=== PATIENT | female | born 1960 | race Caucasian/White ===

== ENCOUNTER 2019-01-23 11:13 | Day surgery (SDC) | payer BC ==
[~2019-01-23] VITALS: Ht 177.8 cm; Wt 127.0 kg
[~2019-01-23 11:13] MED LIST: ASPI81CH; ASPI81CH PO; Adipex-P37.5 MG; BISTOLIC PO; EPIPEN 2-P0.3 MG/0.3; ESCI10 PO; HYDACE10B PO; LISHYD2025 PO; META800 PO; METO50ER; Mobic15 MG PO; NEBI10 PO; PRED20 PO; TRIHYD253B PO; Tylenol325 MG
--- NOTE | 2019-01-23 11:38 | NUR ---
PT ADMITTED TO [facility]. AGREES WITH PLANNED SURGERY. MEDS, ALLERGIES AND HX REVIEWED. LUNG SOUNDS CLEAR.
--- NOTE | 2019-01-23 15:29 | NUR ---
1440 OBRIEN CATH CLAMPED, 400ML WARM STERILE WATER SLOWLY INFUSED TO BLADDER. PT VERBALIZES INCREASING URGE TO VOID. OBRIEN CATH REMOVED INTACT. PT TO BSC. 1520 PT UNABLE TO VOID, CONTINUES TO VERBALIZE URGE TO VOID. BACK TO [facility], DANGLING FEET AT EDGE OF [place], VSS, SMALL AMOUNT OF YE BLOOD NOTED ON HAT INSIDE OF BSC. 1530 S.O. TO BEDSIDE PT CONT TO VERBALIZE URGE TO VOID.
--- NOTE | 2019-01-23 18:00 | NUR ---
1740 PT RELEASED STABLE. INSTRUCTED ON HOME OBRIEN CARE INCLUDING LEG BAG AND DRAINAGE BAG. RINSE WITH [facility] SOLUTION. CALL DR PABLO'S OFFICE FOR APPOINTMENT TO BE SEEN THIS WednesdayJanuary. Patient up to Ambulate independently. Gait steady. Discharge instructions reviewed with patient. Patient verbalizes understanding. Copy given to patient to take home. Patient States Post-Procedure ride home has been arranged. Discharged via wheelchair to private car for ride home.
--- NOTE | 2019-01-24 08:55 | NUR ---
01/24/19 0855 Miriam Brady VERIFICATIONS: EDIT CHART.
== END 2019-01-23 23:00 | disposition home or self-care (01) ==
LOC: ORSCMMR 11:13 → ORD 12:30 → ORSCMMR 23:00 → ORD 02-06 12:30
PROVIDERS: Obstetrics & Gynecology
PROC: 0TSD0ZZ Reposition Urethra, Open Approach (ICD-10-PCS; principal; 2019-01-23 12:30)
DX: N39.3 Stress incontinence (female) (male) (principal); I10 Essential (primary) hypertension; G47.33 Obstructive sleep apnea (adult) (pediatric); E66.01 Morbid (severe) obesity due to excess calories; Z68.41 Body mass index [BMI] 40.0-44.9, adult; Z79.82 Long term (current) use of aspirin; Z79.899 Other long term (current) drug therapy
CPT/HCPCS: A9270-GY; C1771; J0330; J1100; J1885; J1956; J2250; J2370; J2405; J3010; J7120

== ENCOUNTER 2019-05-11 18:32 | Emergency (ER) | payer BC ==
[~2019-05-11] VITALS: Ht 172.7 cm; Wt 80.7 kg
[2019-05-11] MEDS ORDERED: CYCL10 PO (19:43)
[2019-05-11] MEDS ORDERED: IBUP800 PO (19:43)
== END 2019-05-11 19:48 | disposition home or self-care (01) ==
LOC: ER 18:32
DX: M25.511 Pain in right shoulder (principal); I10 Essential (primary) hypertension; Z79.899 Other long term (current) drug therapy; W18.30XA Fall on same level, unspecified, initial encounter
CPT/HCPCS: 73030; 99283-25

== ENCOUNTER → 2019-08-21 | Outpatient (CLI) | payer BC ==
[~2019-08-21] MED LIST changes: +CYCL10 PO; +IBUP800 PO
[2019-08-21 12:36] LABS: BASOPHILS ABSOLUTE AUTO 0.03 K/mm3 (0.00-0.23); BASOPHILS PERCENT AUTO 0 % (0-2); EOSINOPHILS ABSOLUTE AUTO 0.03 K/mm3 (0.00-0.68); EOSINOPHILS PERCENT AUTO 0 % (0-6); Hematocrit 39.6 % (33.0-51.0); Hemoglobin 12.7 g/dL (11.5-16.0); IMMATURE GRAN ABSOLUTE AUTO 0.05 K/mm3 (0.00-0.10); IMMATURE GRAN PERCENT AUTO 1 % (0-1); LYMPHOCYTES ABSOLUTE AUTO 0.45 K/mm3 (0.84-5.20); LYMPHOCYTES PERCENT AUTO 5 % (21-46); MONOCYTES ABSOLUTE AUTO 0.36 K/mm3 (0.16-1.47); MONOCYTES PERCENT AUTO 4 % (4-13); Mean Corpuscular HGB 27.9 pg (26.0-34.0); Mean Corpuscular HGB Conc 32.1 g/dL (31.5-36.5); Mean Corpuscular Volume 87 fL (80-100); Mean Platelet Volume 10.5 fL (9.1-12.4); NEUTROPHILS PERCENT AUTO 91 % (41-73); Platelet Count 189 K/mm3 (150-400); RDW Coefficient Variation 13.8 % (11.7-14.2); RDW Standard Deviation 44.1 fL (35.1-46.3); Red Blood Cell Count 4.56 M/mm3 (3.80-5.20); White Blood Cell Count 9.62 K/mm3 (4.00-11.30)
[2019-08-21 12:44] LABS: Albumin, Blood 3.5 g/dL (3.4-5.0); Albumin/Globulin Ratio 0.7 (0.8-1.8); Bilirubin, Total 0.9 mg/dL (0.1-1.0); Bun/Creatinine Ratio 12.7 (12.0-20.0); Calcium, Blood 8.9 mg/dL (8.5-10.1); Creatinine, Blood 1.34 mg/dL (0.40-1.00); Globulin, Blood 4.7 g/dL (2.2-4.0); Potassium, Blood 3.7 mmol/L (3.5-5.5); Total Protein, Blood 8.2 g/dL (6.4-8.2)
== END ==
LOC: LAB SHORT 12:29 → LAB EV 12:29
PROVIDERS: Emergency Medicine
DX: H60.12 Cellulitis of left external ear (principal)
CPT/HCPCS: 80053; 85025; 87040

== ENCOUNTER → 2019-08-23 | Outpatient (CLI) | payer BC | END | disposition home or self-care (01) | LOC: LAB SHORT 16:39 → LAB 16:39 | DX: L03.90 Cellulitis, unspecified (principal); R59.0 Localized enlarged lymph nodes | CPT/HCPCS: 87070 ==

== ENCOUNTER 2021-06-12 16:35 | Emergency (ER) | payer BC ==
[~2021-06-12] VITALS: Ht 172.7 cm; Wt 131.1 kg
[2021-06-12 17:16] LABS: BASOPHILS ABSOLUTE AUTO 0.02 K/mm3 (0.00-0.23); BASOPHILS PERCENT AUTO 0 % (0-2); EOSINOPHILS PERCENT AUTO 0 % (0-6); Hematocrit 36.9 % (33.0-51.0); Hemoglobin 12.1 g/dL (11.5-16.0); IMMATURE GRAN ABSOLUTE AUTO 0.06 K/mm3 (0.00-0.10); IMMATURE GRAN PERCENT AUTO 1 % (0-1); LYMPHOCYTES ABSOLUTE AUTO 0.43 K/mm3 (0.84-5.20); LYMPHOCYTES PERCENT AUTO 5 % (21-46); MONOCYTES ABSOLUTE AUTO 0.48 K/mm3 (0.16-1.47); MONOCYTES PERCENT AUTO 5 % (4-13); Mean Corpuscular HGB 28.4 pg (26.0-34.0); Mean Corpuscular HGB Conc 32.8 g/dL (31.5-36.5); Mean Corpuscular Volume 87 fL (80-100); Mean Platelet Volume 10.3 fL (9.1-12.4); NEUTROPHILS ABSOLUTE AUTO 8.47 K/mm3 (1.96-9.15); NEUTROPHILS PERCENT AUTO 90 % (41-73); Platelet Count 152 K/mm3 (150-400); RDW Coefficient Variation 14.6 % (11.7-14.2); RDW Standard Deviation 45.9 fL (35.1-46.3); Red Blood Cell Count 4.26 M/mm3 (3.80-5.20); White Blood Cell Count 9.46 K/mm3 (4.00-11.30)
[2021-06-12 17:40] LABS: Alanine Aminotransfer (ALT/SGP 41 U/L (12-78); Albumin, Blood 3.6 g/dL (3.4-5.0); Albumin/Globulin Ratio 0.8 (0.8-1.8); Alk Phos 61 U/L (50-136); Anion Gap 8 mmol/L (6-16); Aspartate Aminotrans (AST/SGOT 25 U/L (12-37); Bilirubin, Total 0.7 mg/dL (0.1-1.0); Blood Urea Nitrogen 13 mg/dL (8-24); Bun/Creatinine Ratio 16.5 (12.0-20.0); CO2, Blood 27 mmol/L (21-32); Chloride, Blood 100 mmol/L (98-108); Creatinine, Blood 0.79 mg/dL (0.40-1.00); Globulin, Blood 4.4 g/dL (2.2-4.0); Glomerular Filtration Rate >60 (60-); Glucose, Blood 183 mg/dL (70-99); Potassium, Blood 3.5 mmol/L (3.5-5.5); Sodium, Blood 135 mmol/L (136-145); Troponin I <0.015 ng/mL (0.000-0.040)
[2021-06-12] MEDS ORDERED: Zithromax250 MG PO (18:52)
== END 2021-06-12 19:05 | disposition home or self-care (01) ==
LOC: ER 16:35
PROVIDERS: Physician Assistant
DX: J18.9 Pneumonia, unspecified organism (principal); I10 Essential (primary) hypertension; Z86.16 Personal history of COVID-19; Z88.8 Allergy status to other drugs, medicaments and biological substances; Z79.82 Long term (current) use of aspirin; Z79.899 Other long term (current) drug therapy
CPT/HCPCS: 36415; 71045; 80053; 83880; 84484; 85025; 93005; 93010; 96374; 99285-25; A9270; J1885; J7030

== ENCOUNTER → 2021-11-18 | Outpatient (CLI) | payer BC ==
[~2021-11-18] MED LIST changes: +Zithromax250 MG PO
[2021-11-19 15:11] LABS: HPV 16 Negative (Negative); HPV 18 Negative (Negative); HPV OTHER HR TYPES Negative (Negative)
== END | disposition home or self-care (01) ==
LOC: LAB SHORT 18:31
PROVIDERS: Obstetrics & Gynecology
DX: Z01.419 Encounter for gynecological examination (general) (routine) without abnormal findings (principal)
CPT/HCPCS: 87624; G0123

== ENCOUNTER → 2021-12-31 | Outpatient (CLI) | payer BC | END | disposition home or self-care (01) | LOC: LAB 14:20 → LAB SHORT 14:20 | DX: Z08 Encounter for follow-up examination after completed treatment for malignant neoplasm (principal); D22.5 Melanocytic nevi of trunk; L40.0 Psoriasis vulgaris; L81.4 Other melanin hyperpigmentation; L82.1 Other seborrheic keratosis; B37.2 Candidiasis of skin and nail; A49.9 Bacterial infection, unspecified; Z85.820 Personal history of malignant melanoma of skin | CPT/HCPCS: 87070; 87077; 87147; 87186; 87205 ==

== ENCOUNTER 2022-06-02 08:59 | Inpatient (IN) | payer BC ==
[~2022-06-02] VITALS: Ht 172.7 cm; Wt 132.9 kg
[2022-06-02 09:55] LABS: BASOPHILS ABSOLUTE AUTO 0.03 K/mm3 (0.00-0.23); BASOPHILS PERCENT AUTO 1 % (0-2); EOSINOPHILS ABSOLUTE AUTO 0.16 K/mm3 (0.00-0.68); EOSINOPHILS PERCENT AUTO 3 % (0-6); Hematocrit 37.4 % (33.0-51.0); Hemoglobin 12.1 g/dL (11.5-16.0); IMMATURE GRAN ABSOLUTE AUTO 0.01 K/mm3 (0.00-0.10); IMMATURE GRAN PERCENT AUTO 0 % (0-1); LYMPHOCYTES ABSOLUTE AUTO 0.91 K/mm3 (0.84-5.20); LYMPHOCYTES PERCENT AUTO 17 % (21-46); MONOCYTES ABSOLUTE AUTO 0.34 K/mm3 (0.16-1.47); MONOCYTES PERCENT AUTO 6 % (4-13); Mean Corpuscular HGB 28.4 pg (26.0-34.0); Mean Corpuscular HGB Conc 32.4 g/dL (31.5-36.5); Mean Corpuscular Volume 88 fL (80-100); Mean Platelet Volume 9.8 fL (9.1-12.4); NEUTROPHILS ABSOLUTE AUTO 3.86 K/mm3 (1.96-9.15); NEUTROPHILS PERCENT AUTO 73 % (41-73); Platelet Count 198 K/mm3 (150-400); RDW Coefficient Variation 14.5 % (11.7-14.2); RDW Standard Deviation 46.2 fL (35.1-46.3); Red Blood Cell Count 4.26 M/mm3 (3.80-5.20); White Blood Cell Count 5.31 K/mm3 (4.00-11.30)
[2022-06-02 10:20] LABS: Albumin, Blood 3.5 g/dL (3.4-5.0); Albumin/Globulin Ratio 0.8 (0.8-1.8); Bilirubin, Total 0.4 mg/dL (0.1-1.0); Bun/Creatinine Ratio 16.6 (12.0-20.0); Calcium, Blood 8.8 mg/dL (8.5-10.1); Creatinine, Blood 0.6 mg/dL (0.40-1.00); Globulin, Blood 4.2 g/dL (2.2-4.0); Potassium, Blood 3.9 mmol/L (3.5-5.5); Total Protein, Blood 7.7 g/dL (6.4-8.2)
--- NOTE | 2022-06-02 12:33 | NUR ---
PT HAS ONE 20G IV IN L BACK OF FOREARM THAT RUNS WELL TO GRAVITY
--- NOTE | 2022-06-02 17:03 | NUR ---
PATIENT ARRIVED TO ROOM FROM PACU. VSS, ON 4L O2 VIA NC. LUNGS CLEAR. FUENTES TO MIDLINE INCISION ON ABDOMEN, SCANT AMOUNT OF DRAINAGE. ABDOMINAL BINDER IN PLACE. PATIENT REPORTS 6/10 PAIN TO ABDOMEN. ORIENTED TO ROOM & CALL LIGHT. DEMONSTRATED IS TO PATIENT AND PATIENT DEMONSTARTED VERY WELL. CALL LIGHT IN REACH.
--- NOTE | 2022-06-02 18:47 | NUR ---
NO ACUTE CHANGES SINCE ARRIVAL TO UNIT. VSS, ON 4L O2, SATS >92%. FAMILY TO BRING CPAP IN FROM HOME. REPORTS ABDOMINAL PAIN TO BE BETTER, AT 4/10 CURRENTLY. TOLERATING JELLO, CRACKERS, AND WATER AT THIS TIME. CALL LIGHT IN REACH, WILL REPORT TO ONCOMING RN.
--- NOTE | 2022-06-02 21:48 | NUR ---
BILATERAL COMPRESSION DEVICES PLACED ON PATIENT AND CONNECTED.
--- NOTE | 2022-06-03 00:52 | NUR ---
PT CHECK: PT IS SLEEPING WITH CPAP IN PLACE. BILATERAL CALF COMPRESSION DEVICES ARE INTACT AND WORKING. PT IS SLEEPING SOUNDLY. CALL LIGHT IS WITHIN REACH.
--- NOTE | 2022-06-03 04:09 | NUR ---
SHIFT SUMMARY: PT IS PODx0 FROM A HERNIA REPAIR WITH MESH. PT HAS A ASHLI DRAIN, A FUENTES, AND AN ABDOMINAL BINDER IN PLACE. SCANT SEROSANGENOUS DRAINAGE NOTED ON THE FUENTES. SANGENOUS DRAINAGE FROM THE ASHLI DRAIN. PT IS VERY PLEASANT AND IS ORIENTATED TO HER OWN ABILITES. PT WAS ABLE TO AMBULATE TO THE BATHROOM AND HAD A POST OP VOID. SHE REQUIRED MINIMAL ASSISTANCE WITH AMBULATION AND REPORTED SLIGHT TENDERNESS TO HER ABD. HER PAIN WAS WELL MANGED T/O THE SHIFT WITH UNINTERUPPTED SLEEP AND ORDERS PER EMAR. SHE IS DRINKING WELL AND HAS HAD CRACKERS TO SNACK ON. SHE WAS ON 4L OF OXYGEN VIA NC AND THEN USED HER CPAP DURING THE NIGHT. PT IS STILL SLEEPING WITH CPAP IN PLACE. PT CALLS ACCORDINGLY AND HAS HER CALL LIGHT WITHIN REACH.
[2022-06-03 05:06] LABS: BASOPHILS ABSOLUTE AUTO 0.01 K/mm3 (0.00-0.23); BASOPHILS PERCENT AUTO 0 % (0-2); EOSINOPHILS ABSOLUTE AUTO 0.01 K/mm3 (0.00-0.68); EOSINOPHILS PERCENT AUTO 0 % (0-6); Hematocrit 35.5 % (33.0-51.0); IMMATURE GRAN ABSOLUTE AUTO 0.03 K/mm3 (0.00-0.10); IMMATURE GRAN PERCENT AUTO 0 % (0-1); LYMPHOCYTES PERCENT AUTO 8 % (21-46); MONOCYTES ABSOLUTE AUTO 0.43 K/mm3 (0.16-1.47); MONOCYTES PERCENT AUTO 5 % (4-13); Mean Corpuscular HGB 28.3 pg (26.0-34.0); Mean Corpuscular Volume 91 fL (80-100); Mean Platelet Volume 10.4 fL (9.1-12.4); NEUTROPHILS ABSOLUTE AUTO 7.98 K/mm3 (1.96-9.15); NEUTROPHILS PERCENT AUTO 87 % (41-73); Platelet Count 241 K/mm3 (150-400); Red Blood Cell Count 3.89 M/mm3 (3.80-5.20); White Blood Cell Count 9.16 K/mm3 (4.00-11.30)
[2022-06-03 05:33] LABS: Bun/Creatinine Ratio 17.5 (12.0-20.0); Calcium, Blood 8.4 mg/dL (8.5-10.1); Creatinine, Blood 0.8 mg/dL (0.40-1.00); Potassium, Blood 4.5 mmol/L (3.5-5.5)
--- NOTE | 2022-06-03 10:59 | NUR ---
Pt. is awake in bed and welcomes my visit. Pt. is unsettled by needs of family at home. Listen empathetically with a calming presence. Pt. displays evidence of engagement and trust. 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 Facilitated a family life review. Prayed with Pt. Pt. verbalized gratitude for the spiritual care visit.
--- NOTE | 2022-06-03 16:09 | NUR ---
SHIFT SUMMARY POD 1 HERNIA REPAIR WITH MESH. MIDLINE ABDOMINAL INCISION WITH FUENTES DRESSING IN PLACE, LIGHT DRAINANGE PRESENT T/O SHIFT, GOOD SUCTION REMAINS. ESCOBAR PLACE TO RLQ, MINIMAL DRAINAGE. ABDOMINAL BINDER IN PLACE. ABDOMINAL PAIN MANAGED PER EMAR WITH 2 PERCOCET. PATIENT UP IN ROOM, AMBULATING HALLWAYS TODAY, UP TO CHAIR & BATHROOM, DOING VERY WELL WITH MOVEMENT. TOLERATING REGULAR PO DIET WELL, DENIES ANY N/V. CALLS APPROPRIATELY, WILL REPORT TO ONCOMING RN.
--- NOTE | 2022-06-04 07:39 | NUR ---
summary pt requiring iv pain meds for adequate control.c/o nausea this am when eating bites of kristin crakers for possible po pain meds. med with zofran and dilaudid.
--- NOTE | 2022-06-04 13:24 | NUR ---
Pt. is sitting up in a chair and welcomes my visit. Many family members are present. Pt. is experiencing some discomfort and verbalizes that she will need to stay an extra night. With therputic listening and a calming presence pt. displays evidence of confidence, maikol and hope. Establish rapport with other family members. Pt. is being cared for well, so this chaplian excused himself until later in the day or in the morning.
[2022-06-04] MEDS ORDERED: Percocet 5-3251 EACH PO (14:45)
--- NOTE | 2022-06-04 15:47 | NUR ---
DISCHARGE SUMMARY PATIENT ALERT AND ORIENTED THROUGHOUT SHIFT. TOLERATING REGULAR DIET AND LIQUIDS. DENIES NAUSEA. ABD PAIN CONTROLLED WITH PO PAIN MEDS AND TORADOL. FUENTES DRESSING TO MIDLINE INCISION C/D/I. ESCOBAR WITH MODERATE SS OUTPUT. PATIENT AMBULATING IN HALLS. ABD BINDER IN PLACE. DISCHARGE ORDERS OBTAINED. DISCHARGE EDUCATION GIVEN ON NEW MEDS, WOUND CARE, ACTIVITY, AND FOLLOW UP APPTS. PATIENT LEFT UNIT AT 1530 VIA WHEELCHAIR FOR HOME WITH FAMILY.
== END 2022-06-04 15:38 | disposition home or self-care (01) | DRG 354 ==
LOC: ER 08:59 → SURS 09:00
PROVIDERS: Emergency Medicine; ADMIT Surgery
PROC: 0WUF0JZ Supplement Abdominal Wall with Synthetic Substitute, Open Approach (ICD-10-PCS; principal; 2022-06-02 12:30)
DX: K43.0 Incisional hernia with obstruction, without gangrene (principal); Z68.41 Body mass index [BMI] 40.0-44.9, adult; K42.9 Umbilical hernia without obstruction or gangrene; E66.01 Morbid (severe) obesity due to excess calories; I10 Essential (primary) hypertension; G47.33 Obstructive sleep apnea (adult) (pediatric); Z88.8 Allergy status to other drugs, medicaments and biological substances; Z79.899 Other long term (current) drug therapy; Z79.2 Long term (current) use of antibiotics; Z98.890 Other specified postprocedural states; Z98.51 Tubal ligation status; Z99.81 Dependence on supplemental oxygen
CPT/HCPCS: 36415; 74177; 80048; 80053; 83690; 85025; 94660; 94762; 96374-59; 99285-25; A9270; C1781; J0330; J0360; J0690; J1100; J1170; J1650; J1885; J2270; J2370; J2405; J2704; J2795; J3010; J7120; Q9967

== ENCOUNTER 2022-06-10 17:57 | Observation (INO) | payer BC ==
[~2022-06-10] VITALS: Ht 172.7 cm; Wt 135.1 kg
[~2022-06-10 17:57] MED LIST changes: +Percocet 5-3251 EACH PO
[2022-06-10 19:08] LABS: Albumin, Blood 3.3 g/dL (3.4-5.0); Albumin/Globulin Ratio 0.8 (0.8-1.8); Bilirubin, Total 0.4 mg/dL (0.1-1.0); Bun/Creatinine Ratio 16.6 (12.0-20.0); Calcium, Blood 9.1 mg/dL (8.5-10.1); Creatinine, Blood 0.78 mg/dL (0.40-1.00); Globulin, Blood 4.3 g/dL (2.2-4.0); Potassium, Blood 4.7 mmol/L (3.5-5.5); Total Protein, Blood 7.6 g/dL (6.4-8.2)
[2022-06-10 19:45] LABS: BASOPHILS ABSOLUTE AUTO 0.02 K/mm3 (0.00-0.23); BASOPHILS PERCENT AUTO 0 % (0-2); EOSINOPHILS ABSOLUTE AUTO 0.27 K/mm3 (0.00-0.68); EOSINOPHILS PERCENT AUTO 3 % (0-6); Hematocrit 34.6 % (33.0-51.0); Hemoglobin 11.2 g/dL (11.5-16.0); IMMATURE GRAN ABSOLUTE AUTO 0.04 K/mm3 (0.00-0.10); IMMATURE GRAN PERCENT AUTO 0 % (0-1); LYMPHOCYTES ABSOLUTE AUTO 0.43 K/mm3 (0.84-5.20); LYMPHOCYTES PERCENT AUTO 5 % (21-46); MONOCYTES ABSOLUTE AUTO 0.63 K/mm3 (0.16-1.47); MONOCYTES PERCENT AUTO 7 % (4-13); Mean Corpuscular HGB 28.4 pg (26.0-34.0); Mean Corpuscular HGB Conc 32.4 g/dL (31.5-36.5); Mean Corpuscular Volume 88 fL (80-100); Mean Platelet Volume 9.9 fL (9.1-12.4); NEUTROPHILS ABSOLUTE AUTO 7.55 K/mm3 (1.96-9.15); NEUTROPHILS PERCENT AUTO 85 % (41-73); Platelet Count 279 K/mm3 (150-400); RDW Coefficient Variation 14.4 % (11.7-14.2); RDW Standard Deviation 45.9 fL (35.1-46.3); Red Blood Cell Count 3.95 M/mm3 (3.80-5.20); White Blood Cell Count 8.94 K/mm3 (4.00-11.30)
[2022-06-10 23:07] LABS: Source, Urine Clean Catch
[2022-06-10 23:17] LABS: Bilirubin, Urine Neg (Neg); Blood, Urine Neg (Neg); Glucose Qualitative, Urine Neg (Neg); Ketones, Urine Neg (Neg); Leukocyte Esterase, Urine 1+ (Neg); Nitrite, Urine Neg (Neg); Protein, Urine Neg (Neg); Urobilinogen, Urine NORM (Normal)
[2022-06-10 23:18] LABS: Appearance, Urine Clear (Clear); Bacteria Rare /hpf; Color, Urine Yellow (P-Yellow); Red Blood Cells, Urine Not Seen /hpf (0-2); Squamous Epithelial Cells Few /hpf (Few); White Blood Cells, Urine 0-2 /hpf (0-5)
[2022-06-11 01:41] LABS: Influenza A, PCR NEGATIVE (NEGATIVE); Influenza B, PCR NEGATIVE (NEGATIVE); Resp Syncytial Virus, PCR NEGATIVE (NEGATIVE); SARS-Cov-2 (COVID-19) PCR, MMC NEGATIVE (NEGATIVE)
[2022-06-11 05:12] LABS: BASOPHILS ABSOLUTE AUTO 0.04 K/mm3 (0.00-0.23); BASOPHILS PERCENT AUTO 0 % (0-2); EOSINOPHILS ABSOLUTE AUTO 0.24 K/mm3 (0.00-0.68); EOSINOPHILS PERCENT AUTO 2 % (0-6); Hematocrit 37.1 % (33.0-51.0); Hemoglobin 11.7 g/dL (11.5-16.0); IMMATURE GRAN ABSOLUTE AUTO 0.06 K/mm3 (0.00-0.10); IMMATURE GRAN PERCENT AUTO 0 % (0-1); LYMPHOCYTES ABSOLUTE AUTO 0.65 K/mm3 (0.84-5.20); LYMPHOCYTES PERCENT AUTO 5 % (21-46); MONOCYTES ABSOLUTE AUTO 0.88 K/mm3 (0.16-1.47); MONOCYTES PERCENT AUTO 7 % (4-13); Mean Corpuscular HGB 27.7 pg (26.0-34.0); Mean Corpuscular HGB Conc 31.5 g/dL (31.5-36.5); Mean Corpuscular Volume 88 fL (80-100); Mean Platelet Volume 10.2 fL (9.1-12.4); NEUTROPHILS ABSOLUTE AUTO 11.75 K/mm3 (1.96-9.15); NEUTROPHILS PERCENT AUTO 86 % (41-73); Platelet Count 289 K/mm3 (150-400); RDW Coefficient Variation 14.6 % (11.7-14.2); RDW Standard Deviation 47.1 fL (35.1-46.3); Red Blood Cell Count 4.23 M/mm3 (3.80-5.20); White Blood Cell Count 13.62 K/mm3 (4.00-11.30)
[2022-06-11 05:38] LABS: Albumin, Blood 3.2 g/dL (3.4-5.0); Albumin/Globulin Ratio 0.7 (0.8-1.8); Bilirubin, Total 0.6 mg/dL (0.1-1.0); Bun/Creatinine Ratio 11.5 (12.0-20.0); Calcium, Blood 9.4 mg/dL (8.5-10.1); Creatinine, Blood 0.87 mg/dL (0.40-1.00); Globulin, Blood 4.6 g/dL (2.2-4.0); Potassium, Blood 3.6 mmol/L (3.5-5.5); Total Protein, Blood 7.8 g/dL (6.4-8.2)
--- NOTE | 2022-06-11 06:10 | NUR ---
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 SHE IS FULL CODE. PT HAD A HERNIA REPAIR ON 06/02/2022 AND HAS MIDLINE ABDOMINAL INCISION HELD SHUT BY DASHAWN - SLIGHTLY RED BUT NO DRAINAGE. ESCOBAR DRAIN TO THE RIGHT LOWER QUADRANT - SEROSANGUINOUS DRAINAGE. PT DENIES PAIN. FEVER HAS BEEN DOWN AROUND 99.1 ORAL. SHE DID HAVE ONE EPISODE OF VOMITING RESOLVED WITH ZOFRAN. PT WEARING CPAP AT NIGHT REQUIRING 5L OXYGEN BLEED IN TO MAINTAIN SATS OVER 88%. PT IS ALERT AND ORIENTED X4. SBA TO BSC DUE TO PT COMPLAINTS OF DIZZINESS - SLIGHT DIZZINESS RESOLVED WITH REST. PT GIVEN IV LASIX AND HAS HAD LARGE OUTPUT.
--- NOTE | 2022-06-11 10:09 | NUR ---
AM NOTE ORIENTATED X4, C/O ABDOMINAL PAIN AND FEVER EARLY IN THE SHIFT, FEVER RESOLVED AND PAIN MUCH REDUCED AFTER PERCOCET. IV ABX GIVEN. NO NAUSEA, ATE BREAKFAST. ESCOBAR DRAIN EMPTIED, DARK RED/BROWN COLORED DRAINAGE. SOME REDNESS AT DRAIN SITE AND SLIGHT REDNESS AT DASHAWN. EXCORIATION UNDER BREASTS AND ABDOMINAL FOLD THAT PT SAID IS NOT TENDER AND IS NORMAL FOR HER. BED LOW, CALL LIGHT IN REACH.
--- NOTE | 2022-06-11 17:46 | NUR ---
SHIFT SUMMARY MS RAMON HAS BEEN TIRED AND SLEEPY FOR MUCH OF THE DAY. TELE SR. TOOK 2 PERCOCET FOR PAIN/FEVER THIS AM, NO FURTHER C/O PAIN. IV ABX GIVEN. ON CONTINUOUS VIOXX, 89-90S ON ROOMN AIR. EXCORIATION UNDER BREASTS AND ABDOMINAL FOLD, NOT TENDER PER PT, POWDER APPLIED. SL REDNESS AT DRAIN SITE AND DASHAWN. ESCOBAR DRAIN EMPTIED THIS AM WITH DARK RED/BROWN OUTPUT BUT MINIMAL DRAINAGE TO BULB SXN SINCE THEN. NO C/O NAUSEA. BED LOW, CALL LIGHT IN REACH.
--- NOTE | 2022-06-12 04:42 | NUR ---
SHIFT SUMMARY; PATIENT IS AO X 4 THIS EVENING. SHE IS PLEASANT AND COOPERATIVE WITH CARE. SHE HAS AN ABDOMINAL BINDER OVER HER SURGICAL SITE. DASHAWN INTACT AND SLIGHT REDNESS TO SITE NO DRAINAGE NOTED. HER JPEG HAS SCANT DRAINAGE NOTED AND IS STILL COMPRESSED. SHE COMPLAINS OF PAIN TO ABDOMEN TONIGHT AND WAS MEDICATED X 1 WITH OXYCODONE. SHE ALSO COMPLAINED OF A HEADACHE EARLY THIS AM AND WAS PROVIDED WITH TYLENOL BOTH WITH MUCH SUCCESS. WILL CONTINUE TO MONITOR THIS PAITENT CLOSELY FOR ANY WANTS OR NEEDS THAT MAY COME UP UNTIL HAND OFF AT SHIFT CHANGE TO DAY SHIFT RN.
[2022-06-12 04:44] LABS: BASOPHILS ABSOLUTE AUTO 0.04 K/mm3 (0.00-0.23); BASOPHILS PERCENT AUTO 0 % (0-2); EOSINOPHILS ABSOLUTE AUTO 0.53 K/mm3 (0.00-0.68); EOSINOPHILS PERCENT AUTO 4 % (0-6); Hematocrit 32.4 % (33.0-51.0); Hemoglobin 10.1 g/dL (11.5-16.0); IMMATURE GRAN ABSOLUTE AUTO 0.07 K/mm3 (0.00-0.10); IMMATURE GRAN PERCENT AUTO 1 % (0-1); LYMPHOCYTES ABSOLUTE AUTO 1.13 K/mm3 (0.84-5.20); LYMPHOCYTES PERCENT AUTO 9 % (21-46); MONOCYTES ABSOLUTE AUTO 1.09 K/mm3 (0.16-1.47); MONOCYTES PERCENT AUTO 9 % (4-13); Mean Corpuscular HGB 27.7 pg (26.0-34.0); Mean Corpuscular HGB Conc 31.2 g/dL (31.5-36.5); Mean Corpuscular Volume 89 fL (80-100); Mean Platelet Volume 9.8 fL (9.1-12.4); NEUTROPHILS ABSOLUTE AUTO 9.29 K/mm3 (1.96-9.15); NEUTROPHILS PERCENT AUTO 76 % (41-73); Platelet Count 239 K/mm3 (150-400); RDW Coefficient Variation 14.9 % (11.7-14.2); RDW Standard Deviation 49.3 fL (35.1-46.3); Red Blood Cell Count 3.64 M/mm3 (3.80-5.20); White Blood Cell Count 12.15 K/mm3 (4.00-11.30)
[2022-06-12 05:18] LABS: Magnesium, Blood 2.1 mg/dL (1.6-2.4)
[2022-06-12 05:24] LABS: Alanine Aminotransfer (ALT/SGP 22 U/L (12-78); Albumin, Blood 2.7 g/dL (3.4-5.0); Albumin/Globulin Ratio 0.6 (0.8-1.8); Alk Phos 64 U/L (50-136); Anion Gap 4 mmol/L (6-16); Aspartate Aminotrans (AST/SGOT 11 U/L (12-37); Bilirubin, Total 0.5 mg/dL (0.1-1.0); Blood Urea Nitrogen 16 mg/dL (8-24); Bun/Creatinine Ratio 17.5 (12.0-20.0); C-REACTIVE PROTEIN, EXT RANGE >19.000 mg/dL (0.000-0.300); CO2, Blood 33 mmol/L (21-32); Calcium, Blood 8.4 mg/dL (8.5-10.1); Chloride, Blood 100 mmol/L (98-108); Creatinine, Blood 0.92 mg/dL (0.40-1.00); Globulin, Blood 4.3 g/dL (2.2-4.0); Glomerular Filtration Rate 70 (60-); Glucose, Blood 129 mg/dL (70-99); Phosphorus, Blood 3.1 mg/dL (2.5-4.9); Potassium, Blood 3.6 mmol/L (3.5-5.5); Sodium, Blood 137 mmol/L (136-145)
--- NOTE | 2022-06-12 08:52 | NUR ---
REPORT FROM PM RN, PATIENT IN NO DISTRESS, ALERT AND ORIENTED X4, SURGERY CONSULT CALLED INTO ANSWERING SERVICE FOR DR LEANN PAN, PATIENT NOTIFIED, CALL LIGHT WITH IN REACH, EATING BREAKFAST, ESCOBAR DRAINED
[2022-06-12] MEDS ORDERED: ACET325 PO (13:45)
[2022-06-12] MEDS ORDERED: MICO100S TOP (13:46)
[2022-06-12] MEDS ORDERED: ONDA4ODT MM (13:47)
[2022-06-12] MEDS ORDERED: CEPH500 PO (13:49)
[2022-06-12] MEDS ORDERED: VISBIOME 112.51 EACH PO (13:49)
== END 2022-06-12 14:39 | disposition home or self-care (01) ==
LOC: ER 17:57 → MEDS 17:58
PROVIDERS: Emergency Medicine; Family Medicine; ADMIT Internal Medicine
DX: R50.82 Postprocedural fever (principal); I10 Essential (primary) hypertension; I87.8 Other specified disorders of veins; E66.9 Obesity, unspecified; Z20.822 Contact with and (suspected) exposure to COVID-19; Z98.890 Other specified postprocedural states; Z88.8 Allergy status to other drugs, medicaments and biological substances; Z79.899 Other long term (current) drug therapy
CPT/HCPCS: 0241U; 36415; 71046; 74177; 80053; 81001; 83605; 83735; 83880; 84100; 84484; 85025; 86140; 93005; 93010; 94660; 94762; 96365; 99285-25; A9270; J0360; J0690; J1650; J1940; J2405; J2543; J3370; J7050; J7120; Q9967

== ENCOUNTER 2022-07-06 09:16 | Day surgery (SDC) | payer BC ==
[~2022-07-06] VITALS: Ht 172.7 cm; Wt 126.6 kg
[~2022-07-06 09:16] MED LIST changes: +ACET325 PO; +CEPH500 PO; +MICO100S TOP; +ONDA4ODT MM; +VISBIOME 112.51 EACH PO
[2022-07-06] MEDS ORDERED: FLUC150A PO (10:23)
[2022-07-06] MEDS ORDERED: SULFAMETHOXAZO1 EAC1 UD (10:23)
--- NOTE | 2022-07-06 10:49 | NUR ---
Ambulatory in Day Surgery. Patient confirms NPO status and agrees with scheduled surgery. Patient States Post-Procedure ride home has been arranged. Pre-Op teaching done. Pt verbalizes understanding. Lungs clear T/O to Auscultation.
--- NOTE | 2022-07-06 11:24 | NUR ---
07/06/22 1124 Thien Arriaza NO SPECIMENS OR CULTURES PER MD. WOUND VAC PLACED WITH ONE PIECE BLACK FOAM INSIDE ABDOMEN SET TO CONTINEOUS 120MMHG.
--- NOTE | 2022-07-06 12:58 | NUR ---
Discharge instructions reviewed with patient. Patient verbalizes understanding. Copy given to patient to take home. WOUND VAC C/D/I WITH SUCTION WORKING.
--- NOTE | 2022-07-06 13:03 | NUR ---
PT DRESSED, Discharged via wheelchair to private car for ride home.
--- NOTE | 2022-07-06 13:17 | NUR ---
PER WOUND CLINIC, NO PROVIDERS IN THIS WEEK FOR WOUND VAC CHANGED AND WAS TOLD TO CONTACT DR HAWTHORNE OFFICE. CALLED THE OFFICE AFTER DISCHARGING AR[facility] THE OFFICE WAS CLOSED FOR LUNCH. SPOKE WITH BRANDON KENNEY FOR DR ANDERSON AND SHE TOLD ME SHE WILL CALL [facility] REGARDING WOUND VAC CHANGE. THIS RN CALLED [facility] TO EXPLAIN. PT UNDERSTANDING.
== END 2022-07-06 13:00 | disposition home or self-care (01) ==
LOC: ORSCMMR 09:16 → ORD 10:30 → ORSCMMR 13:00
PROVIDERS: Surgery
PROC: 3E10X8Z Irrigation of Skin and Mucous Membranes using Irrigating Substance (ICD-10-PCS; principal; 2022-07-06 10:30)
DX: L02.211 Cutaneous abscess of abdominal wall (principal); I10 Essential (primary) hypertension; G47.33 Obstructive sleep apnea (adult) (pediatric); Z79.899 Other long term (current) drug therapy; E66.01 Morbid (severe) obesity due to excess calories; Z68.41 Body mass index [BMI] 40.0-44.9, adult
CPT/HCPCS: A9270; J0690; J1100; J1885; J2405; J2704; J2795; J3010; J7120

== ENCOUNTER 2022-07-20 04:20 | Day surgery (SDC) | payer BC ==
[~2022-07-20 04:20] MED LIST changes: +FLUC150A PO; +SULFAMETHOXAZO1 EAC1 UD
== END 2022-07-20 22:58 | disposition home or self-care (01) ==
LOC: WOUND 04:20
DX: S31.105A Unspecified open wound of abdominal wall, periumbilic region without penetration into peritoneal cavity, initial encounter (principal); S31.105S Unspecified open wound of abdominal wall, periumbilic region without penetration into peritoneal cavity, sequela; I10 Essential (primary) hypertension

== ENCOUNTER 2022-07-24 03:09 | Day surgery (SDC) | payer BC | END 2022-07-24 23:06 | disposition home or self-care (01) | LOC: WOUND 03:09 | DX: S31.109D Unspecified open wound of abdominal wall, unspecified quadrant without penetration into peritoneal cavity, subsequent encounter (principal); X58.XXXD Exposure to other specified factors, subsequent encounter; S31.105S Unspecified open wound of abdominal wall, periumbilic region without penetration into peritoneal cavity, sequela; X58.XXXS Exposure to other specified factors, sequela; I10 Essential (primary) hypertension; Z48.815 Encounter for surgical aftercare following surgery on the digestive system ==

== ENCOUNTER 2022-07-27 00:30 | Day surgery (SDC) | payer BC | END 2022-07-27 22:48 | disposition home or self-care (01) | LOC: WOUND 00:30 | DX: S31.109D Unspecified open wound of abdominal wall, unspecified quadrant without penetration into peritoneal cavity, subsequent encounter (principal); X58.XXXD Exposure to other specified factors, subsequent encounter; S31.105S Unspecified open wound of abdominal wall, periumbilic region without penetration into peritoneal cavity, sequela; X58.XXXS Exposure to other specified factors, sequela; I10 Essential (primary) hypertension; Z48.815 Encounter for surgical aftercare following surgery on the digestive system ==

== ENCOUNTER 2022-07-29 01:52 | Day surgery (SDC) | payer BC | END 2022-07-29 23:23 | disposition home or self-care (01) | LOC: WOUND 01:52 | DX: Z48.815 Encounter for surgical aftercare following surgery on the digestive system (principal); S31.109D Unspecified open wound of abdominal wall, unspecified quadrant without penetration into peritoneal cavity, subsequent encounter; X58.XXXD Exposure to other specified factors, subsequent encounter; S31.105S Unspecified open wound of abdominal wall, periumbilic region without penetration into peritoneal cavity, sequela; X58.XXXS Exposure to other specified factors, sequela; I10 Essential (primary) hypertension ==

== ENCOUNTER 2022-07-31 13:00 | Day surgery (SDC) | payer BC | END 2022-07-31 23:59 | disposition home or self-care (01) | LOC: WOUND 13:00 | DX: S31.109D Unspecified open wound of abdominal wall, unspecified quadrant without penetration into peritoneal cavity, subsequent encounter (principal); X58.XXXD Exposure to other specified factors, subsequent encounter; S31.105S Unspecified open wound of abdominal wall, periumbilic region without penetration into peritoneal cavity, sequela; X58.XXXS Exposure to other specified factors, sequela; I10 Essential (primary) hypertension; Z48.815 Encounter for surgical aftercare following surgery on the digestive system ==

== ENCOUNTER 2022-08-03 01:18 | Day surgery (SDC) | payer BC | END 2022-08-03 23:20 | disposition home or self-care (01) | LOC: WOUND 01:18 | DX: Z48.815 Encounter for surgical aftercare following surgery on the digestive system (principal); I10 Essential (primary) hypertension ==

== ENCOUNTER 2022-08-05 04:14 | Day surgery (SDC) | payer BC | END 2022-08-05 22:49 | disposition home or self-care (01) | LOC: WOUND 04:14 | DX: S31.105A Unspecified open wound of abdominal wall, periumbilic region without penetration into peritoneal cavity, initial encounter (principal); S31.105S Unspecified open wound of abdominal wall, periumbilic region without penetration into peritoneal cavity, sequela; I10 Essential (primary) hypertension; Y83.8 Other surgical procedures as the cause of abnormal reaction of the patient, or of later complication, without mention of misadventure at the time of the procedure | CPT/HCPCS: A9270 ==

== ENCOUNTER 2022-08-07 03:26 | Day surgery (SDC) | payer BC | END 2022-08-07 23:26 | disposition home or self-care (01) | LOC: WOUND 03:26 | DX: Z48.815 Encounter for surgical aftercare following surgery on the digestive system (principal); S31.109D Unspecified open wound of abdominal wall, unspecified quadrant without penetration into peritoneal cavity, subsequent encounter ==

== ENCOUNTER 2022-08-10 09:23 | Day surgery (SDC) | payer BC | END 2022-08-10 23:15 | disposition home or self-care (01) | LOC: WOUND 09:23 | DX: Z48.815 Encounter for surgical aftercare following surgery on the digestive system (principal); S31.109D Unspecified open wound of abdominal wall, unspecified quadrant without penetration into peritoneal cavity, subsequent encounter ==

== ENCOUNTER 2022-08-12 02:23 | Day surgery (SDC) | payer BC | END 2022-08-12 22:41 | disposition home or self-care (01) | LOC: WOUND 02:23 | DX: S31.109D Unspecified open wound of abdominal wall, unspecified quadrant without penetration into peritoneal cavity, subsequent encounter (principal); X58.XXXD Exposure to other specified factors, subsequent encounter; S31.105S Unspecified open wound of abdominal wall, periumbilic region without penetration into peritoneal cavity, sequela; X58.XXXS Exposure to other specified factors, sequela; I10 Essential (primary) hypertension; Z48.815 Encounter for surgical aftercare following surgery on the digestive system | CPT/HCPCS: A9270 ==

== ENCOUNTER 2022-08-19 02:16 | Day surgery (SDC) | payer BC | END 2022-08-19 22:47 | disposition home or self-care (01) | LOC: WOUND 02:16 | DX: T81.89XA Other complications of procedures, not elsewhere classified, initial encounter (principal); I10 Essential (primary) hypertension | CPT/HCPCS: A9270; G0463 ==

== ENCOUNTER 2022-08-26 01:38 | Day surgery (SDC) | payer BC | END 2022-08-26 22:50 | disposition home or self-care (01) | LOC: WOUND 01:38 | DX: T81.89XA Other complications of procedures, not elsewhere classified, initial encounter (principal); I10 Essential (primary) hypertension | CPT/HCPCS: G0463 ==

== ENCOUNTER 2022-09-02 02:15 | Day surgery (SDC) | payer BC | END 2022-09-02 23:20 | disposition home or self-care (01) | LOC: WOUND 02:15 | DX: Z48.815 Encounter for surgical aftercare following surgery on the digestive system (principal); I10 Essential (primary) hypertension; S31.105S Unspecified open wound of abdominal wall, periumbilic region without penetration into peritoneal cavity, sequela; S31.109D Unspecified open wound of abdominal wall, unspecified quadrant without penetration into peritoneal cavity, subsequent encounter | CPT/HCPCS: A9270; G0463 ==

== ENCOUNTER 2022-09-09 02:24 | Day surgery (SDC) | payer BC | END 2022-09-09 23:02 | disposition home or self-care (01) | LOC: WOUND 02:24 | DX: T81.89XA Other complications of procedures, not elsewhere classified, initial encounter (principal); I10 Essential (primary) hypertension | CPT/HCPCS: A9270; G0463 ==

== ENCOUNTER 2022-09-16 02:03 | Day surgery (SDC) | payer BC | END 2022-09-16 23:02 | disposition home or self-care (01) | LOC: WOUND 02:03 | DX: T81.89XA Other complications of procedures, not elsewhere classified, initial encounter (principal); I10 Essential (primary) hypertension | CPT/HCPCS: A9270; G0463 ==

== ENCOUNTER 2022-09-25 02:23 | Day surgery (SDC) | payer BC | END 2022-09-25 22:46 | disposition home or self-care (01) | LOC: WOUND 02:23 | DX: T81.89XA Other complications of procedures, not elsewhere classified, initial encounter (principal); I10 Essential (primary) hypertension | CPT/HCPCS: G0463 ==

== ENCOUNTER 2022-10-02 00:53 | Day surgery (SDC) | payer BC | END 2022-10-02 22:56 | disposition home or self-care (01) | LOC: WOUND 00:53 | DX: T81.89XA Other complications of procedures, not elsewhere classified, initial encounter (principal); I10 Essential (primary) hypertension | CPT/HCPCS: G0463 ==

== ENCOUNTER 2022-10-16 02:04 | Day surgery (SDC) | payer BC | END 2022-10-17 23:26 | disposition home or self-care (01) | LOC: WOUND 02:04 | DX: T81.89XA Other complications of procedures, not elsewhere classified, initial encounter (principal); I10 Essential (primary) hypertension | CPT/HCPCS: G0463 ==

== ENCOUNTER → 2023-01-04 | Outpatient (CLI) | payer BC | END | disposition home or self-care (01) | LOC: LAB SHORT 15:31 → LAB 15:31 | DX: B37.2 Candidiasis of skin and nail (principal) | CPT/HCPCS: 87070; 87077; 87147; 87186; 87205 ==

== ENCOUNTER → 2023-08-07 | Outpatient (CLI) | payer BC ==
[2023-08-07 14:34] LABS: BASOPHILS ABSOLUTE AUTO 0.02 K/mm3 (0.00-0.23); BASOPHILS PERCENT AUTO 0 % (0-2); EOSINOPHILS ABSOLUTE AUTO 0.02 K/mm3 (0.00-0.68); EOSINOPHILS PERCENT AUTO 0 % (0-6); Hematocrit 36.9 % (33.0-51.0); IMMATURE GRAN ABSOLUTE AUTO 0.04 K/mm3 (0.00-0.10); IMMATURE GRAN PERCENT AUTO 1 % (0-1); LYMPHOCYTES ABSOLUTE AUTO 0.59 K/mm3 (0.84-5.20); LYMPHOCYTES PERCENT AUTO 11 % (21-46); MONOCYTES ABSOLUTE AUTO 0.38 K/mm3 (0.16-1.47); MONOCYTES PERCENT AUTO 7 % (4-13); Mean Corpuscular HGB 28.7 pg (26.0-34.0); Mean Corpuscular HGB Conc 32.5 g/dL (31.5-36.5); Mean Corpuscular Volume 88 fL (80-100); NEUTROPHILS ABSOLUTE AUTO 4.57 K/mm3 (1.96-9.15); NEUTROPHILS PERCENT AUTO 81 % (41-73); RDW Standard Deviation 45.4 fL (35.1-46.3); Red Blood Cell Count 4.18 M/mm3 (3.80-5.20); White Blood Cell Count 5.62 K/mm3 (4.00-11.30)
[2023-08-07 14:46] LABS: Mean Platelet Volume 9.6 fL (9.1-12.4); Platelet Count 137 K/mm3 (150-400)
== END ==
LOC: LAB 14:26 → LAB SHORT 14:26
PROVIDERS: Physician Assistant
DX: R50.9 Fever, unspecified (principal)
CPT/HCPCS: 83605; 85025

== ENCOUNTER → 2023-08-07 | Outpatient (CLI) | payer BC | END | disposition home or self-care (01) | LOC: LAB SHORT 13:19 → LAB 13:19 | PROVIDERS: Physician Assistant | DX: L03.211 Cellulitis of face (principal) | CPT/HCPCS: 86695; 86696 ==

== ENCOUNTER → 2023-12-23 | Outpatient (CLI) | payer BC ==
[2023-12-23 19:23] LABS: Calcium, Blood 9.6 mg/dL (8.5-10.1); Creatinine, Blood 1.27 mg/dL (0.40-1.00); Potassium, Blood 3.3 mmol/L (3.5-5.5)
== END ==
LOC: LAB SHORT 18:20
PROVIDERS: Internal Medicine
DX: L03.90 Cellulitis, unspecified (principal)
CPT/HCPCS: 80048

== ENCOUNTER 2024-04-25 12:00 | Inpatient (IN) | payer BC ==
[~2024-04-25] VITALS: Ht 172.7 cm; Wt 118.9 kg
[2024-04-25 12:39] LABS: BASOPHILS ABSOLUTE AUTO 0.02 K/mm3 (0.00-0.23); BASOPHILS PERCENT AUTO 0 % (0-2); EOSINOPHILS ABSOLUTE AUTO 0.01 K/mm3 (0.00-0.68); EOSINOPHILS PERCENT AUTO 0 % (0-6); Hematocrit 37.8 % (33.0-51.0); Hemoglobin 12.5 g/dL (11.5-16.0); IMMATURE GRAN ABSOLUTE AUTO 0.05 K/mm3 (0.00-0.10); IMMATURE GRAN PERCENT AUTO 1 % (0-1); LYMPHOCYTES PERCENT AUTO 8 % (21-46); MONOCYTES ABSOLUTE AUTO 0.45 K/mm3 (0.16-1.47); MONOCYTES PERCENT AUTO 5 % (4-13); Mean Corpuscular HGB 28.4 pg (26.0-34.0); Mean Corpuscular HGB Conc 33.1 g/dL (31.5-36.5); Mean Corpuscular Volume 86 fL (80-100); Mean Platelet Volume 9.6 fL (9.1-12.4); NEUTROPHILS ABSOLUTE AUTO 7.44 K/mm3 (1.96-9.15); NEUTROPHILS PERCENT AUTO 86 % (41-73); Platelet Count 183 K/mm3 (150-400); RDW Coefficient Variation 13.6 % (11.7-14.2); RDW Standard Deviation 42.2 fL (35.1-46.3); White Blood Cell Count 8.67 K/mm3 (4.00-11.30)
[2024-04-25 12:56] LABS: Albumin/Globulin Ratio 0.9 (0.8-1.8); Bilirubin, Total 0.6 mg/dL (0.1-1.0); Bun/Creatinine Ratio 20.3 (12.0-20.0); Calcium, Blood 9.3 mg/dL (8.5-10.1); Creatinine, Blood 0.69 mg/dL (0.40-1.00); Globulin, Blood 4.3 g/dL (2.2-4.0); Total Protein, Blood 8.3 g/dL (6.4-8.2)
[2024-04-25] MEDS ORDERED: Vancomycin HCL 2,500 MG in NS 500 ML IV ONE (13:50)
[2024-04-25] MEDS ORDERED: Ondansetron HCl 2 MG / ML 2ML Vial IV ONE ×2 (16:40→17:05)
[2024-04-25] MEDS ORDERED: Acetaminophen 500 MG Tab PO ONE (16:55)
[2024-04-25] MEDS ORDERED: NS 1,000 ML IV SCH (17:05)
[2024-04-25] MEDS ORDERED: Ibuprofen 600 MG Tab PO ONE (17:35)
[2024-04-25] MEDS ORDERED: Ciprofloxacin 400MG/D5 200ML 200 ML IV STA (21:08)
[2024-04-25] MEDS ORDERED: Magnesium Hydroxide Conc 10 ML UDC PO PRN (21:15)
[2024-04-25] MEDS ORDERED: Acetaminophen 325 MG TABLET PO PRN (21:20)
[2024-04-25] MEDS ORDERED: Prochlorperazine Edisylate 10 mg Vial IV PRN (21:20)
[2024-04-25] MEDS ORDERED: Ketorolac Tromethamine 15mg Vial IV PRN (21:25)
[2024-04-25] MEDS ORDERED: NS 1,000 ML IV ONE (22:36)
[2024-04-25] MEDS ORDERED: NYSTATIN15 GM TOP (23:45)
[2024-04-25] MEDS ORDERED: NYAMYC15 G1 TOP (23:46)
[2024-04-25] MEDS ORDERED: POTA10T PO (23:48)
[2024-04-25] MEDS ORDERED: [UNRECOGNIZED DRUG - OTHER] PO (23:50)
[2024-04-25] MEDS ORDERED: REFRESH RELIEVA10 M4 BOTHEYES (23:51)
[2024-04-26] MEDS ORDERED: NS 250 ML IV PRN (00:15)
--- NOTE | 2024-04-26 01:04 | NUR ---
04/25/24 2230 PT ARRIVED TO ROOM FROM ER IN STABLE CONDITION. DENIES ANY DISCOMFORT AT THIS TIME. RASH UNDER BREASTS AND ABD FOLD, CLEANED AND APPLIED BABY POWDER. R EAR CELLULITIS. BS WAS 149. NO OTHER APPARENT SIGNS OF DISTRESS. CALL LIGHT IS IN REACH.
[2024-04-26] MEDS ORDERED: Vancomycin HCL 1,500 MG in NS 250 ML IV SCH (02:00)
--- NOTE | 2024-04-26 02:41 | NUR ---
0000 PT LYING IN BED, EYES CLOSED, CPAP IS ON. BREATHING IS EVEN AND UNLABORED. NO APPARENT SIGNS OF DISTRESS. CALL LIGHT IS IN REACH.
--- NOTE | 2024-04-26 03:04 | NUR ---
PT APPEARS TO BE SLEEPING WHEN THIS RN ENTERS ROOM. THE PT DOES NOT APPEAR TO BE IN ANY DISTRESS.
[2024-04-26 03:37] VITALS: BP 123/68
--- NOTE | 2024-04-26 04:12 | NUR ---
THIS RN ENTERS PT ROOM TO FIND PATIENT APPEARING TO BE ASLEEP AND IN NO DISTRESS.
--- NOTE | 2024-04-26 05:01 | NUR ---
AAO X 4, ON RA. HAD NAUSE/VOMITING IN ER BUT NONE SINCE ARRIVING TO ROOM. PT HAS RASH UNDER BREASTS AND ABD FOLD, POWDER APPLIED FOR NOW, WILL F/U ON GETTING NYSTATIN POWDER ORDERED. PT USING HOME CPAP W/CONT OXIMETRY. BS 149.
--- NOTE | 2024-04-26 06:04 | NUR ---
PT APPEARS TO BE SLEEPING COMFORTABLY AND DOES NOT APPEAR TO BE IN ANY DISTRESS. NO CHANGES NOTED.
[2024-04-26 06:35] LABS: BASOPHILS ABSOLUTE AUTO 0.01 K/mm3 (0.00-0.23); BASOPHILS PERCENT AUTO 0 % (0-2); EOSINOPHILS ABSOLUTE AUTO 0.08 K/mm3 (0.00-0.68); EOSINOPHILS PERCENT AUTO 1 % (0-6); Hematocrit 33.8 % (33.0-51.0); IMMATURE GRAN ABSOLUTE AUTO 0.03 K/mm3 (0.00-0.10); IMMATURE GRAN PERCENT AUTO 0 % (0-1); LYMPHOCYTES ABSOLUTE AUTO 0.47 K/mm3 (0.84-5.20); LYMPHOCYTES PERCENT AUTO 7 % (21-46); MONOCYTES ABSOLUTE AUTO 0.66 K/mm3 (0.16-1.47); MONOCYTES PERCENT AUTO 9 % (4-13); Mean Corpuscular HGB 28.7 pg (26.0-34.0); Mean Corpuscular HGB Conc 32.5 g/dL (31.5-36.5); Mean Corpuscular Volume 88 fL (80-100); Mean Platelet Volume 9.7 fL (9.1-12.4); NEUTROPHILS ABSOLUTE AUTO 5.77 K/mm3 (1.96-9.15); NEUTROPHILS PERCENT AUTO 82 % (41-73); Platelet Count 136 K/mm3 (150-400); RDW Coefficient Variation 13.9 % (11.7-14.2); RDW Standard Deviation 44.6 fL (35.1-46.3); Red Blood Cell Count 3.83 M/mm3 (3.80-5.20); White Blood Cell Count 7.02 K/mm3 (4.00-11.30)
[2024-04-26 07:15] LABS: BASOPHILS PERCENT MAN 0 % (0-2); EOSINOPHILS PERCENT MAN 0 % (0-6); LYMPHOCYTES ABSOLUTE MAN 0.35 K/mm3 (0.84-5.20); LYMPHOCYTES PERCENT MAN 5 % (21-46); MONOCYTES ABSOLUTE MAN 0.28 K/mm3 (0.16-1.47); MONOCYTES PERCENT MAN 4 % (4-13); NEUTROPHILS ABSOLUTE MAN 6.38 K/mm3 (1.96-9.15); SEG NEUTROPHILS PERCENT MAN 91 % (41-73); TOTAL CELLS COUNTED 100
[2024-04-26 07:18] LABS: Albumin, Blood 3.2 g/dL (3.4-5.0); Albumin/Globulin Ratio 0.8 (0.8-1.8); Bilirubin, Total 0.5 mg/dL (0.1-1.0); Bun/Creatinine Ratio 21.2 (12.0-20.0); Calcium, Blood 8.6 mg/dL (8.5-10.1); Creatinine, Blood 0.85 mg/dL (0.40-1.00); Globulin, Blood 3.9 g/dL (2.2-4.0); Potassium, Blood 3.6 mmol/L (3.5-5.5); Total Protein, Blood 7.1 g/dL (6.4-8.2)
[2024-04-26] MEDS ORDERED: Insulin Regular 100 UNIT/ML 10ML Vial SC SCH (07:30)
[2024-04-26] MEDS ORDERED: Carvedilol 6.25 MG Tab PO SCH (08:00)
[2024-04-26 08:01] VITALS: BP 128/75
[2024-04-26] MEDS ORDERED: Lactobacil 2-S.Thermo-Bifido 1 1 Cap PO SCH (09:00)
[2024-04-26] MEDS ORDERED: Ciprofloxacin 400MG/D5 200ML 200 ML IV SCH (09:00)
[2024-04-26] MEDS ORDERED: Miconazole Nitrate 2% 85 GM PWD TOP SCH (09:00)
[2024-04-26] MEDS ORDERED: Enoxaparin 40 MG/0.4 ML SYR SC SCH (09:00)
--- NOTE | 2024-04-26 11:26 | NUR ---
Pt. is awake in bed and welcomes my visit. Pt. 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 facilitate a review of the Pts. health condition, and listen with interets, empathy and a calming presence. Pt. verbalizes that her rashid remains strong and that her nondenominational is aware she is back in the hospital. Prayed with the Pt. Pt. verbalized gratitude for the spiritual care visit.
--- NOTE | 2024-04-26 14:07 | NUR ---
CALL FROM DR. CHOWDHURY: SHE WILL BE HERE TO SEE PATIENT AFTER SHE IS DONE WITH PATIENTS IN CLINIC AROUND 4:30PM.
[2024-04-26 15:20] VITALS: BP 162/87
[2024-04-26] MEDS ORDERED: FentaNYL Citrate 50 MCG/ML 2 ML Injection IV PRN (16:10)
--- NOTE | 2024-04-26 17:13 | NUR ---
PT IS A/OX4, PLEASANT AND COOPERATIVE. THE PT IS UP IND IN HER ROOM, THE PT WAS UP AND SHOWERED TODAY. THE PT WAS MEDICATED FOR PAIN IN THE BACK OF HER HEAD AND NECK X2 TODAY. DR RIVERA ENT CONSULTED ON THE PATIENT THIS AFTERNOON. CALL LIGHT IN REACH. BED IN THE LOW POSITION
[2024-04-26 19:16] VITALS: BP 130/70
[2024-04-27 01:49] LABS: Vancomycin, Trough 14.2 ug/mL (5.0-10.0)
[2024-04-27 02:47] VITALS: BP 139/79
--- NOTE | 2024-04-27 03:40 | NUR ---
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 COOPERATIVE WITH CARE, AFFECT CHEERFUL. VOICED DISCOMFORT OF NECK AND RECEIVED TYLENOL, MED EFFECTIVE. RECEIVING ANTIBIOTICS FOR CELLULITIS OF RIGHT EAR. ALERT AND OREINTED. HAS BEEN RESTING QUIETLY WITH FEW INTERRUPTIONS. CPAP IN USE. ABLE TO REPOSITION SELF IN BED FOR COMFORT WITHOUT ASSIST. CALL LIGHT IN REACH, RAILS UP X 2 AND BED IN LOW POSITION FOR SAFETY. WILL CONTINUE TO MONITOR.
[2024-04-27 07:31] VITALS: BP 141/72
[2024-04-27] MEDS ORDERED: MethylPREDNISolone Sod Succ 40 MG VIAL IV ONE (10:00)
[2024-04-27] MEDS ORDERED: LACT PO (11:05)
[2024-04-27] MEDS ORDERED: CIPR500 PO (11:06)
[2024-04-27] MEDS ORDERED: CIPHYDOTSU (11:06)
[2024-04-27] MEDS ORDERED: DOXY100 PO (11:07)
--- NOTE | 2024-04-27 14:53 | NUR ---
pt discharged THE PT VERBALIZED UNDERSTANDING OF THE DC INSTRUCTIONS. THE PTS PRESCRIPTIONS WERE FAXED TO [facility] PER THE PTS REQUEST. THE PT WAS INSTRUCTED TO FOLLOW UP WITH HER PCP'S. THE PT WAS TRANSFERED OUT VIA WHEELCHAIR ACCOMPANIED BY THE RN AND HER DAUGHTER
== END 2024-04-27 14:51 | disposition home or self-care (01) | DRG 871 ==
LOC: ER 12:00 → MEDS 21:12 → ENPENDDIS 04-27 10:30 → MEDS 04-27 14:51
PROVIDERS: Physician Assistant; ADMIT Internal Medicine
PROC: 3E03329 Introduction of Other Anti-infective into Peripheral Vein, Percutaneous Approach (ICD-10-PCS; principal; 2024-04-25)
PROC: 5A09357 Assistance with Respiratory Ventilation, Less than 24 Consecutive Hours, Continuous Positive Airway Pressure (ICD-10-PCS; 2024-04-25)
DX: A41.9 Sepsis, unspecified organism (principal); G92.8 Other toxic encephalopathy; Z68.41 Body mass index [BMI] 40.0-44.9, adult; H60.11 Cellulitis of right external ear; L40.9 Psoriasis, unspecified; E11.9 Type 2 diabetes mellitus without complications; G47.33 Obstructive sleep apnea (adult) (pediatric); H60.91 Unspecified otitis externa, right ear; I35.0 Nonrheumatic aortic (valve) stenosis; E66.9 Obesity, unspecified; Z88.8 Allergy status to other drugs, medicaments and biological substances; Z79.899 Other long term (current) drug therapy; Z98.51 Tubal ligation status; Z98.890 Other specified postprocedural states; I10 Essential (primary) hypertension; H61.001 Unspecified perichondritis of right external ear
CPT/HCPCS: 36415; 70450; 70480; 80053; 80202; 82947; 83036; 83605; 85025; 87040; 94762; 96361; 96365; 96366; 96375; 96376; A9270; J0744; J1650; J1885; J2405; J2919; J3010; J3370; J7030; J7040; J7050

== ENCOUNTER 2024-09-15 10:37 | Emergency (ER) | payer BC ==
[~2024-09-15] VITALS: Ht 172.7 cm; Wt 122.0 kg
[~2024-09-15 10:37] MED LIST changes: +CIPHYDOTSU; +CIPR500 PO; +DOXY100 PO; +LACT PO; +NYAMYC15 G1 TOP; +NYSTATIN15 GM TOP; +POTA10T PO; +REFRESH RELIEVA10 M4 BOTHEYES; +[UNRECOGNIZED DRUG - OTHER] PO
[2024-09-15] MEDS ORDERED: HYDROmorphone HCl/Pf 1MG SYR IV ONE (11:45)
[2024-09-15] MEDS ORDERED: Ondansetron HCl 2 MG / ML 2ML Vial IV ONE (11:45)
[2024-09-15 12:01] LABS: BASOPHILS ABSOLUTE AUTO 0.02 K/mm3 (0.00-0.23); BASOPHILS PERCENT AUTO 0 % (0-2); EOSINOPHILS ABSOLUTE AUTO 0.06 K/mm3 (0.00-0.68); EOSINOPHILS PERCENT AUTO 1 % (0-6); Hematocrit 40.2 % (33.0-51.0); IMMATURE GRAN ABSOLUTE AUTO 0.02 K/mm3 (0.00-0.10); IMMATURE GRAN PERCENT AUTO 0 % (0-1); LYMPHOCYTES ABSOLUTE AUTO 0.37 K/mm3 (0.84-5.20); LYMPHOCYTES PERCENT AUTO 4 % (21-46); MONOCYTES ABSOLUTE AUTO 0.49 K/mm3 (0.16-1.47); MONOCYTES PERCENT AUTO 6 % (4-13); Mean Corpuscular HGB 28.7 pg (26.0-34.0); Mean Corpuscular HGB Conc 32.3 g/dL (31.5-36.5); Mean Corpuscular Volume 89 fL (80-100); Mean Platelet Volume 10.2 fL (9.1-12.4); NEUTROPHILS ABSOLUTE AUTO 7.89 K/mm3 (1.96-9.15); NEUTROPHILS PERCENT AUTO 89 % (41-73); Platelet Count 197 K/mm3 (150-400); RDW Coefficient Variation 13.5 % (11.7-14.2); Red Blood Cell Count 4.53 M/mm3 (3.80-5.20); White Blood Cell Count 8.85 K/mm3 (4.00-11.30)
--- NOTE | 2024-09-15 12:17 | NUR ---
Pt. is in the ER room and welcomes my visit. Daughter is present as is nurse Saranya. Facilitated an update of her history and condition. Pt. displayed evidence of awareness and engagement. Prayed with Pt. Pt. requested this probe operator contact her tablet making machine operator helper. Texted tablet making machine operator helper as Pt. requested.
[2024-09-15] MEDS ORDERED: Doxycycline Hyclate 100 MG TAB PO ONE (12:35)
[2024-09-15] MEDS ORDERED: Ciprofloxacin 500 MG Tab PO ONE (12:35)
[2024-09-15] MEDS ORDERED: Tobramycin/Dexameth Opth Susp 2.5 ML RIGHTEYE ONE (12:40)
[2024-09-15 12:41] LABS: Bilirubin, Total 0.5 mg/dL (0.1-1.0); Bun/Creatinine Ratio 28.2 (12.0-20.0); Calcium, Blood 9.5 mg/dL (8.5-10.1); Creatinine, Blood 0.78 mg/dL (0.40-1.00); Globulin, Blood 4.1 g/dL (2.2-4.0); Total Protein, Blood 8.1 g/dL (6.4-8.2)
[2024-09-15] MEDS ORDERED: CIPHYDOTSU TOP ×2 (12:44→15:21)
[2024-09-15 13:00] VITALS: BP 152/79
[2024-09-15] MEDS ORDERED: MONDOXYNE NL100 MG PO (13:10)
[2024-09-15] MEDS ORDERED: Norco 5-325 Ta1 EACH PO (13:10)
[2024-09-15] MEDS ORDERED: Cipro500 MG PO (13:10)
[2024-09-15] MEDS ORDERED: Dexamethasone Sod Phos 10 MG/ML 1ML VIAL IV ONE (13:10)
[2024-09-19] MEDS ORDERED: NEOPOLHCSU RIGHTEAR (10:34)
== END 2024-09-15 14:00 | disposition home or self-care (01) ==
LOC: ER 10:37
PROVIDERS: Physician Assistant
DX: L03.211 Cellulitis of face (principal); H60.11 Cellulitis of right external ear; I10 Essential (primary) hypertension
CPT/HCPCS: 80053; 85025; 96374; 96375; 99283-25; A9270; J1100; J1171; J2405